=== PATIENT | male | born 1970 | race Caucasian/White ===

== ENCOUNTER 2024-02-14 15:03 | Outpatient (AMB) | payer BC, SELFPAY ==
--- NOTE | 2024-02-14 15:08 | MHC.OFFVIS ---
Vital Signs 02/14/24 15:09 Height 6 ft 2 in Weight 229 lb 4.492 oz BMI 29.4 BP 140/70 H Blood Pressure Location Rt brachial Position Sitting Pulse 77 Pulse Source Pulse Oximeter Pulse Oximetry (%) 94 Oxygen Delivery Method Room Air Intake Visit Reasons: /LM Intake Note: New pt presents today for consult. C/o pain in multiple joints. States he has RA; saw rheum many years ago at [facility]. 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 He states that in he was diagnosed with ankylosing spondylitis in his spine and rheumatoid arthritis in his hands by Dr. Beasley. Stated that he was on sulfasalazine regularly until Dr. Beasley retired around 2016. Has not been evaluated by a brand development manager since then. Stated that he did not believe that the sulfasalazine was helping however he stated that over the last few years has been having more progressive fitness, deformities of his hands, fingers, toes. States that he gets back pain but his back pain is not his most severe joint. Generalized morning stiffness, he wakes up around 04:00 to be ready for work at 07:00. Denies any history suggestive of uveitis. Has had colonoscopy in the past which showed benign polyps. He takes Aleve about once a month as needed for joint pain. Denies any history of psoriasis. States that his father also has a ankylosing spondylitis. In 1998 he had left lower extremity DVT in the context of left knee arthroscopy. He was started on Coumadin. He believes about a year after he developed another lower extremity DVT. He is currently on Xarelto regularly. He wears compression stockings regularly for his left lower extremity. [facility] Medical History Spondyloarthropathy Chronic back pain History of cardioversion Recurrent deep vein thrombosis Essential hypertension History of atrial fibrillation Surgical History H/O arthroscopy of knee Family History Mother Peripheral vascular disease Spondyloarthropathy Father COPD (chronic obstructive pulmonary disease) DVT (deep venous thrombosis) Social History Household Members: Significant Other Alcohol intake: current Alcohol intake frequency: a few times a week Patient Tobacco Use Status: Current everyday Tobacco user Tobacco use type: Cigarette Cigarette Packs Per Day: 1 Review of Systems Const Reports fatigue and Denies fever(s) ENT Reports neck pain Musc Reports back pain, Reports deformity, Reports arthralgias, Reports joint swelling, Reports neck pain and Reports stiffness Endo Reports fatigue Physical Exam Vital Signs: Last Vital Signs Pulse 77 02/14/24 15:09 BP 140/70 H 02/14/24 15:09 Pulse Ox 94 02/14/24 15:09 Oxygen Delivery Method Room Air 02/14/24 15:09 BMI result Body Mass Index 29.4 Const General: cooperative, healthy appearing and comfortable Nutritional Appearance: overweight Orientation/consciousness: patient oriented x3 Limitations: no limitations HEENT Head: Yes normocephalic and Yes atraumatic Mouth: moist mucous membranes Resp Effort & Inspection: normal respiratory effort and able to speak in complete sentences Auscultation: clear to auscultation bilaterally Cardio Rate: regular rate Rhythm: regular rhythm Neuro General: patient oriented x3 Extrem Other: Significant deformities of both hands. Right wrist prominent ulnar styloid No wrist swelling but some pain with full flexion Significant enlargement of PIP is and DIP is Mild boggy swelling of some of the PIP is and DIP is especially left thumb interphalangeal joint Significant destruction of right 4th DIP Left wrist pain with full flexion Minimally tender PIPs Significant deformities enlargement of PIP is and DIP is with some boggy swelling Positive empty can test bilaterally Have infraspinatus test, lift-off test, Speed's test bilaterally Normal range of motion of neck Nicolasa test 10-12.8 cm Negative straight leg raise test bilaterally Negative Fabere test bilaterally Significant deformities of toes significant enlargement of 1st MTPs bilaterally Normal nailfold capillaroscopy Assessment & Plan Assessment & Plan (1) Spondyloarthropathy: Comment: +HLA b27 SSZ approx [id number] Code(s): M47.819 - Spondylosis without myelopathy or radiculopathy, site unspecified Category: Medical Plan: This is a 54-year-old male with HLA B27 positive spondyloarthropathy who presents as a new patient for me. Was diagnosed with HLA B27 positive spondyloarthropathy approximately 2006 and was on sulfasalazine regularly until about 2017 when his brand development manager retired. Per patient it was not helping much but he feels that his deformities are getting progressive. On exam he has significant deformities of his hands and feet. Some limitation of movement of his spine. He also states that he was diagnosed with rheumatoid arthritis. Will order comprehensive serology to screen for better understand his underlying autoimmune rheumatic disease. Check x-rays of involved joints. Patient was on Xarelto regularly for his history of recurrent DVTs. Combination of NSAIDs and Xarelto is not a good idea, there is increased risk of bleeding. Can take prednisone 10 mg once daily as needed for joint pain Follow-up in about 6 or 7 weeks Plan I spent 49 minutes reviewing patient's chart, evaluating patient, ordering diagnostic workup, counseling patient and documenting in the chart Orders: Orders C Reactive Protein Today M06.9 - Rheumatoid arthritis, unspecified Erythrocyte Sedimentation Rate Today M06.9 - Rheumatoid arthritis, unspecified Immunofixation Pnl, Serum Today M06.9 - Rheumatoid arthritis, unspecified Cyclic Citrullinated Peptide Today M06.9 - Rheumatoid arthritis, unspecified HLA B27 Today M45.9 - Ankylosing spondylitis of unspecified sites in spine XR lumbar spine 4V min Today M47.819 - Spondylosis without myelopathy or radiculopathy, site unspecified XR hand wrist LT Today M47.819 - Spondylosis without myelopathy or radiculopathy, site unspecified XR sacroiliac joint min 3V Today M47.819 - Spondylosis without myelopathy or radiculopathy, site unspecified XR foot LT min 3V Today M45.9 - Ankylosing spondylitis of unspecified sites in spine XR foot RT min 3V Today M45.9 - Ankylosing spondylitis of unspecified sites in spine XR shoulder LT min 2V Today M45.9 - Ankylosing spondylitis of unspecified sites in spine DEON Reflex Titer and Pattern Today M32.9 - Systemic lupus erythematosus, unspecified UA w Microscopic Today M32.9 - Systemic lupus erythematosus, unspecified Complete Blood Count Auto Diff Today M06.9 - Rheumatoid arthritis, unspecified Comprehensive Met. Panel Today M06.9 - Rheumatoid arthritis, unspecified Hepatitis A,B,C Profile Today Z11.59 - Encounter for screening for other viral diseases Protein Electrophoresis, Serum Today M06.9 - Rheumatoid arthritis, unspecified T Spot TB Today Z11.7 - Encounter for testing for latent tuberculosis infection Rheumatoid Factor Today M06.9 - Rheumatoid arthritis, unspecified XR hand wrist RT Today M47.819 - Spondylosis without myelopathy or radiculopathy, site unspecified XR shoulder RT min 2V Today M45.9 - Ankylosing spondylitis of unspecified sites in spine Anti Extractable Nuclear Ag Today M32.9 - Systemic lupus erythematosus, unspecified Anti DNA DS Antibody Today M32.9 - Systemic lupus erythematosus, unspecified Complement C3 Today M32.9 - Systemic lupus erythematosus, unspecified Complement C4 Today M32.9 - Systemic lupus erythematosus, unspecified DNA Double Stranded-Crithidia Today M32.9 - Systemic lupus erythematosus, unspecified Protein Creatinine Ratio, Ur Today M32.9 - Systemic lupus erythematosus, unspecified Sjogren's Antibodies Today M32.9 - Systemic lupus erythematosus, unspecified Beta-2 Glycoprotein Antibody Today I82.409 - Acute embolism and thrombosis of unspecified deep veins of unspecified lower extremity Cardiolipin Antibodies Today I82.409 - Acute embolism and thrombosis of unspecified deep veins of unspecified lower extremity Lupus Anticoagulant Panel Today I82.409 - Acute embolism and thrombosis of unspecified deep veins of unspecified lower extremity Medications: New prednisone 10 mg PO DAILY PRN 30 tabs 0RF pain (scale score 7-10) Coding Level of Care Code New Pt Level 4 (74177) Diagnoses Spondyloarthropathy M47.819
[2024-02-14 15:09] VITALS: BP 140/70; PULSE 77; O2SAT 94; BMI 29.4
== END 2024-02-14 15:51 | disposition home or self-care (01) ==
PROVIDERS: PCP Physician Assistant; Visit Provider Student in an Organized Health Care Education/Training Program
DX: M47.819 Spondylosis without myelopathy or radiculopathy, site unspecified (principal)
CPT/HCPCS: 99204

== ENCOUNTER 2024-02-14 15:03 | Outpatient (REF) | payer BC, SELFPAY ==
--- NOTE | ~2024-02-14 | XR_ITS ---
EXAMINATION: XR BILATERAL SHOULDERS XR BILATERAL SACROILIAC JOINTS XR LUMBAR SPINE XR BILATERAL HAND/WRISTS XR BILATERAL FEET CLINICAL INFORMATION: Ankylosing spondylitis, patient states he is getting a rheumatology workup from his doctor. COMPARISON: None available. TECHNIQUE: 4 views of each shoulder. 4 views of each hand. 3 views of each foot. 3 views of the bilateral sacroiliac joints. 5 views of the lumbar spine. FINDINGS: LEFT FOOT: Advanced degenerative changes in the IP joint of the great toe with hypertrophic change, joint space narrowing and lateral subluxation of the distal tuft of the great toe. Moderate degenerative changes first metatarsophalangeal joint. Flexion deformities in the toes with lateral subluxations at the second, third, and fourth MTP joints. Marked dislocation at the fifth MTP joint as well as at the fifth PIP joint. Bones are demineralized. Advanced degenerative changes with hypertrophic change in the midfoot and tarsometatarsal joints. Moderate dorsal and plantar calcaneal spurs. RIGHT FOOT: Advanced degenerative changes in the IP joint of the great toe with hypertrophic change, joint space narrowing and lateral subluxation of the distal tuft of the great toe. Degenerative changes in the IP joints of the toes with subluxations particularly notable at the second PIP and DIP joints. Moderate degenerative changes first metatarsophalangeal joint. The bones are diffusely demineralized. Advanced degenerative changes at the right fifth MTP joints. Moderate degenerative changes with hypertrophic change in the midfoot and tarsometatarsal joints. Small dorsal and plantar calcaneal spurs. BILATERAL SACROILIAC JOINTS: Advanced degenerative changes in the bilateral sacroiliac joints with joint space narrowing and hypertrophic change. Degenerative changes on very limited images of the bilateral hips. LUMBAR SPINE: Levoscoliosis of the lumbar spine. Bones are diffusely demineralized. Advanced facet arthritis in the mid to lower lumbar spine. Multilevel lumbar spondylosis with multilevel loss of disc space height. LEFT HAND: Narrowing and degenerative changes in the distal radial ulnar and radiocarpal joints. Moderate degenerative changes in the first carpometacarpal joint with joint space narrowing and hypertrophic change. Abundant hypertrophic change particularly notable in the region of the distal ulna. Degenerative changes with joint space narrowing and hypertrophic change particularly notable in the third DIP and first IP joints. Soft tissue swelling at the digits. RIGHT HAND: Mild narrowing and degenerative change in the distal radial ulnar and radiocarpal joints. Moderate hypertrophic change particularly in the region of the distal right ulna. Advanced degenerative changes with joint space narrowing and hypertrophic change most notable in the IP joint of the thumb as well as in the third, fourth and fifth DIP joints. XR/XR shoulder LT min 2V IMPRESSION: 1. Advanced degenerative changes in the bilateral sacroiliac joints. 2. Advanced degenerative changes in the bilateral feet with subluxations and dislocations as described. 3. Advanced facet arthritis in the wax-ch-wbgfu lumbar spine. 4. Multilevel lumbar spondylosis with multilevel loss of disc space height. 5. Advanced degenerative changes in the bilateral hands. Recommend follow-up imaging in 10-14 days if fracture is suspected. MRI could be considered for further evaluation based on the clinical assessment.
--- NOTE | ~2024-02-14 | XR_ITS ---
EXAMINATION: XR BILATERAL SHOULDERS XR BILATERAL SACROILIAC JOINTS XR LUMBAR SPINE XR BILATERAL HAND/WRISTS XR BILATERAL FEET CLINICAL INFORMATION: Ankylosing spondylitis, patient states he is getting a rheumatology workup from his doctor. COMPARISON: None available. TECHNIQUE: 4 views of each shoulder. 4 views of each hand. 3 views of each foot. 3 views of the bilateral sacroiliac joints. 5 views of the lumbar spine. FINDINGS: LEFT FOOT: Advanced degenerative changes in the IP joint of the great toe with hypertrophic change, joint space narrowing and lateral subluxation of the distal tuft of the great toe. Moderate degenerative changes first metatarsophalangeal joint. Flexion deformities in the toes with lateral subluxations at the second, third, and fourth MTP joints. Marked dislocation at the fifth MTP joint as well as at the fifth PIP joint. Bones are demineralized. Advanced degenerative changes with hypertrophic change in the midfoot and tarsometatarsal joints. Moderate dorsal and plantar calcaneal spurs. RIGHT FOOT: Advanced degenerative changes in the IP joint of the great toe with hypertrophic change, joint space narrowing and lateral subluxation of the distal tuft of the great toe. Degenerative changes in the IP joints of the toes with subluxations particularly notable at the second PIP and DIP joints. Moderate degenerative changes first metatarsophalangeal joint. The bones are diffusely demineralized. Advanced degenerative changes at the right fifth MTP joints. Moderate degenerative changes with hypertrophic change in the midfoot and tarsometatarsal joints. Small dorsal and plantar calcaneal spurs. BILATERAL SACROILIAC JOINTS: Advanced degenerative changes in the bilateral sacroiliac joints with joint space narrowing and hypertrophic change. Degenerative changes on very limited images of the bilateral hips. LUMBAR SPINE: Levoscoliosis of the lumbar spine. Bones are diffusely demineralized. Advanced facet arthritis in the mid to lower lumbar spine. Multilevel lumbar spondylosis with multilevel loss of disc space height. LEFT HAND: Narrowing and degenerative changes in the distal radial ulnar and radiocarpal joints. Moderate degenerative changes in the first carpometacarpal joint with joint space narrowing and hypertrophic change. Abundant hypertrophic change particularly notable in the region of the distal ulna. Degenerative changes with joint space narrowing and hypertrophic change particularly notable in the third DIP and first IP joints. Soft tissue swelling at the digits. RIGHT HAND: Mild narrowing and degenerative change in the distal radial ulnar and radiocarpal joints. Moderate hypertrophic change particularly in the region of the distal right ulna. Advanced degenerative changes with joint space narrowing and hypertrophic change most notable in the IP joint of the thumb as well as in the third, fourth and fifth DIP joints. XR/XR hand wrist LT IMPRESSION: 1. Advanced degenerative changes in the bilateral sacroiliac joints. 2. Advanced degenerative changes in the bilateral feet with subluxations and dislocations as described. 3. Advanced facet arthritis in the grg-ji-vqnnp lumbar spine. 4. Multilevel lumbar spondylosis with multilevel loss of disc space height. 5. Advanced degenerative changes in the bilateral hands. Recommend follow-up imaging in 10-14 days if fracture is suspected. MRI could be considered for further evaluation based on the clinical assessment.
--- NOTE | ~2024-02-14 | XR_ITS ---
EXAMINATION: XR BILATERAL SHOULDERS XR BILATERAL SACROILIAC JOINTS XR LUMBAR SPINE XR BILATERAL HAND/WRISTS XR BILATERAL FEET CLINICAL INFORMATION: Ankylosing spondylitis, patient states he is getting a rheumatology workup from his doctor. COMPARISON: None available. TECHNIQUE: 4 views of each shoulder. 4 views of each hand. 3 views of each foot. 3 views of the bilateral sacroiliac joints. 5 views of the lumbar spine. FINDINGS: LEFT FOOT: Advanced degenerative changes in the IP joint of the great toe with hypertrophic change, joint space narrowing and lateral subluxation of the distal tuft of the great toe. Moderate degenerative changes first metatarsophalangeal joint. Flexion deformities in the toes with lateral subluxations at the second, third, and fourth MTP joints. Marked dislocation at the fifth MTP joint as well as at the fifth PIP joint. Bones are demineralized. Advanced degenerative changes with hypertrophic change in the midfoot and tarsometatarsal joints. Moderate dorsal and plantar calcaneal spurs. RIGHT FOOT: Advanced degenerative changes in the IP joint of the great toe with hypertrophic change, joint space narrowing and lateral subluxation of the distal tuft of the great toe. Degenerative changes in the IP joints of the toes with subluxations particularly notable at the second PIP and DIP joints. Moderate degenerative changes first metatarsophalangeal joint. The bones are diffusely demineralized. Advanced degenerative changes at the right fifth MTP joints. Moderate degenerative changes with hypertrophic change in the midfoot and tarsometatarsal joints. Small dorsal and plantar calcaneal spurs. BILATERAL SACROILIAC JOINTS: Advanced degenerative changes in the bilateral sacroiliac joints with joint space narrowing and hypertrophic change. Degenerative changes on very limited images of the bilateral hips. LUMBAR SPINE: Levoscoliosis of the lumbar spine. Bones are diffusely demineralized. Advanced facet arthritis in the mid to lower lumbar spine. Multilevel lumbar spondylosis with multilevel loss of disc space height. LEFT HAND: Narrowing and degenerative changes in the distal radial ulnar and radiocarpal joints. Moderate degenerative changes in the first carpometacarpal joint with joint space narrowing and hypertrophic change. Abundant hypertrophic change particularly notable in the region of the distal ulna. Degenerative changes with joint space narrowing and hypertrophic change particularly notable in the third DIP and first IP joints. Soft tissue swelling at the digits. RIGHT HAND: Mild narrowing and degenerative change in the distal radial ulnar and radiocarpal joints. Moderate hypertrophic change particularly in the region of the distal right ulna. Advanced degenerative changes with joint space narrowing and hypertrophic change most notable in the IP joint of the thumb as well as in the third, fourth and fifth DIP joints. XR/XR sacroiliac joint min 3V IMPRESSION: 1. Advanced degenerative changes in the bilateral sacroiliac joints. 2. Advanced degenerative changes in the bilateral feet with subluxations and dislocations as described. 3. Advanced facet arthritis in the [id number]-hz-ceoyv lumbar spine. 4. Multilevel lumbar spondylosis with multilevel loss of disc space height. 5. Advanced degenerative changes in the bilateral hands. Recommend follow-up imaging in 10-14 days if fracture is suspected. MRI could be considered for further evaluation based on the clinical assessment.
--- NOTE | ~2024-02-14 | XR_ITS ---
EXAMINATION: XR BILATERAL SHOULDERS XR BILATERAL SACROILIAC JOINTS XR LUMBAR SPINE XR BILATERAL HAND/WRISTS XR BILATERAL FEET CLINICAL INFORMATION: Ankylosing spondylitis, patient states he is getting a rheumatology workup from his doctor. COMPARISON: None available. TECHNIQUE: 4 views of each shoulder. 4 views of each hand. 3 views of each foot. 3 views of the bilateral sacroiliac joints. 5 views of the lumbar spine. FINDINGS: LEFT FOOT: Advanced degenerative changes in the IP joint of the great toe with hypertrophic change, joint space narrowing and lateral subluxation of the distal tuft of the great toe. Moderate degenerative changes first metatarsophalangeal joint. Flexion deformities in the toes with lateral subluxations at the second, third, and fourth MTP joints. Marked dislocation at the fifth MTP joint as well as at the fifth PIP joint. Bones are demineralized. Advanced degenerative changes with hypertrophic change in the midfoot and tarsometatarsal joints. Moderate dorsal and plantar calcaneal spurs. RIGHT FOOT: Advanced degenerative changes in the IP joint of the great toe with hypertrophic change, joint space narrowing and lateral subluxation of the distal tuft of the great toe. Degenerative changes in the IP joints of the toes with subluxations particularly notable at the second PIP and DIP joints. Moderate degenerative changes first metatarsophalangeal joint. The bones are diffusely demineralized. Advanced degenerative changes at the right fifth MTP joints. Moderate degenerative changes with hypertrophic change in the midfoot and tarsometatarsal joints. Small dorsal and plantar calcaneal spurs. BILATERAL SACROILIAC JOINTS: Advanced degenerative changes in the bilateral sacroiliac joints with joint space narrowing and hypertrophic change. Degenerative changes on very limited images of the bilateral hips. LUMBAR SPINE: Levoscoliosis of the lumbar spine. Bones are diffusely demineralized. Advanced facet arthritis in the mid to lower lumbar spine. Multilevel lumbar spondylosis with multilevel loss of disc space height. LEFT HAND: Narrowing and degenerative changes in the distal radial ulnar and radiocarpal joints. Moderate degenerative changes in the first carpometacarpal joint with joint space narrowing and hypertrophic change. Abundant hypertrophic change particularly notable in the region of the distal ulna. Degenerative changes with joint space narrowing and hypertrophic change particularly notable in the third DIP and first IP joints. Soft tissue swelling at the digits. RIGHT HAND: Mild narrowing and degenerative change in the distal radial ulnar and radiocarpal joints. Moderate hypertrophic change particularly in the region of the distal right ulna. Advanced degenerative changes with joint space narrowing and hypertrophic change most notable in the IP joint of the thumb as well as in the third, fourth and fifth DIP joints. XR/XR lumbar spine 4V min IMPRESSION: 1. Advanced degenerative changes in the bilateral sacroiliac joints. 2. Advanced degenerative changes in the bilateral feet with subluxations and dislocations as described. 3. Advanced facet arthritis in the [id number]-sq-[id number] lumbar spine. 4. Multilevel lumbar spondylosis with multilevel loss of disc space height. 5. Advanced degenerative changes in the bilateral hands. Recommend follow-up imaging in 10-14 days if fracture is suspected. MRI could be considered for further evaluation based on the clinical assessment.
--- NOTE | ~2024-02-14 | XR_ITS ---
EXAMINATION: XR BILATERAL SHOULDERS XR BILATERAL SACROILIAC JOINTS XR LUMBAR SPINE XR BILATERAL HAND/WRISTS XR BILATERAL FEET CLINICAL INFORMATION: Ankylosing spondylitis, patient states he is getting a rheumatology workup from his doctor. COMPARISON: None available. TECHNIQUE: 4 views of each shoulder. 4 views of each hand. 3 views of each foot. 3 views of the bilateral sacroiliac joints. 5 views of the lumbar spine. FINDINGS: LEFT FOOT: Advanced degenerative changes in the IP joint of the great toe with hypertrophic change, joint space narrowing and lateral subluxation of the distal tuft of the great toe. Moderate degenerative changes first metatarsophalangeal joint. Flexion deformities in the toes with lateral subluxations at the second, third, and fourth MTP joints. Marked dislocation at the fifth MTP joint as well as at the fifth PIP joint. Bones are demineralized. Advanced degenerative changes with hypertrophic change in the midfoot and tarsometatarsal joints. Moderate dorsal and plantar calcaneal spurs. RIGHT FOOT: Advanced degenerative changes in the IP joint of the great toe with hypertrophic change, joint space narrowing and lateral subluxation of the distal tuft of the great toe. Degenerative changes in the IP joints of the toes with subluxations particularly notable at the second PIP and DIP joints. Moderate degenerative changes first metatarsophalangeal joint. The bones are diffusely demineralized. Advanced degenerative changes at the right fifth MTP joints. Moderate degenerative changes with hypertrophic change in the midfoot and tarsometatarsal joints. Small dorsal and plantar calcaneal spurs. BILATERAL SACROILIAC JOINTS: Advanced degenerative changes in the bilateral sacroiliac joints with joint space narrowing and hypertrophic change. Degenerative changes on very limited images of the bilateral hips. LUMBAR SPINE: Levoscoliosis of the lumbar spine. Bones are diffusely demineralized. Advanced facet arthritis in the mid to lower lumbar spine. Multilevel lumbar spondylosis with multilevel loss of disc space height. LEFT HAND: Narrowing and degenerative changes in the distal radial ulnar and radiocarpal joints. Moderate degenerative changes in the first carpometacarpal joint with joint space narrowing and hypertrophic change. Abundant hypertrophic change particularly notable in the region of the distal ulna. Degenerative changes with joint space narrowing and hypertrophic change particularly notable in the third DIP and first IP joints. Soft tissue swelling at the digits. RIGHT HAND: Mild narrowing and degenerative change in the distal radial ulnar and radiocarpal joints. Moderate hypertrophic change particularly in the region of the distal right ulna. Advanced degenerative changes with joint space narrowing and hypertrophic change most notable in the IP joint of the thumb as well as in the third, fourth and fifth DIP joints. XR/XR hand wrist RT IMPRESSION: 1. Advanced degenerative changes in the bilateral sacroiliac joints. 2. Advanced degenerative changes in the bilateral feet with subluxations and dislocations as described. 3. Advanced facet arthritis in the [id number] lumbar spine. 4. Multilevel lumbar spondylosis with multilevel loss of disc space height. 5. Advanced degenerative changes in the bilateral hands. Recommend follow-up imaging in 10-14 days if fracture is suspected. MRI could be considered for further evaluation based on the clinical assessment.
[2024-02-14 17:14] LABS: MANUAL DIFF FLAG NO
[2024-02-14 17:29] LABS: Basophils Absolute Auto 0.1 X10*3/uL (0.0-0.2); Basophils Percent Auto 0.7 % (0-2); Eosinophils Absolute Auto 0.1 X10*3/uL (0.0-0.4); Eosinophils Percent Auto 1.9 % (0-4); Hematocrit 43.7 % (42.0-52.0); Imm Gran Abs Auto 0.01 X10*3/uL (0.00-0.03); Imm Gran Pct Auto 0.1 % (0.0-0.4); Lymphocytes Absolute Auto 2.1 X10*3/uL (1.2-4.9); Lymphocytes Percent Auto 30.3 % (20-40); Mean Corpuscular HGB Conc 34.3 g/dl (31.0-36.0); Mean Corpuscular Hemoglobin 30.7 pg (27.0-33.0); Mean Corpuscular Volume 89.5 fL (80.0-98.0); Mean Platelet Volume 9.6 fL (9.4-12.4); Monocytes Absolute Auto 0.4 X10*3/uL (0.1-1.2); Monocytes Percent Auto 5.2 % (2-11); Neutrophils Absolute Auto 4.3 x10*3/uL (2.0-8.3); Neutrophils Percent Auto 61.8 % (45-73); Platelet Count 326 X10*3/uL (160-400); Red Blood Count 4.88 X10*6/uL (4.60-5.80); Red Cell Distribution Width 13.3 % (11.0-16.0); White Blood Count 6.9 X10*3/uL (4.8-10.8)
[2024-02-14 17:43] LABS: Appearance Urine Clear; Color Urine Yellow; Glucose Urine UA Negative (Negative); Leukocyte Esterase Urine Negative (Negative); Nitrite Urine Negative (Negative); PH 5.5 (5.0-9.0); Specific Gravity - Urine 1.015 (1.005-1.025); Urine Blood Negative (Negative); Urine Ketones Negative (Negative); Urine Protein Negative (Neg-Trace)
[2024-02-14 17:46] LABS: Bacteria Urine None Seen (None Seen); Hyaline Casts Urine 0-2 /LPF (0-2); RBC Urine 0-2 /HPF (0-2); Squamous Epithelial Cell Urine 0-2 /HPF (0-2); WBC Urine 0-5 /HPF (0-5)
[2024-02-14 18:01] LABS: Rheumatoid Factor < 13.0 IU/mL (<15.0)
[2024-02-14 18:01] LABS: Creatinine Urine 86.96 mg/dL; Total Protein Urine Random < 7 mg/dL (<12)
[2024-02-14 18:02] LABS: Alanine Aminotransferase 17 U/L (0-40); Albumin Level 4.5 g/dL (3.5-5.0); Alkaline Phosphatase 87 U/L (39-117); Anion Gap 15 (12-20); Aspartate Amino Transferase 17 U/L (5-37); Bilirubin Total 0.4 mg/dL (0.0-1.0); Blood Urea Nitrogen 13 mg/dL (9-16); C Reactive Protein 1.68 mg/dL (< or = 0.50); Calcium 9.7 mg/dL (8.4-10.2); Carbon Dioxide 26 mmol/L (22-29); Chloride 103 mmol/L (96-108); Estimated Glomerular Filt Rate > 60; Glucose Random 90 mg/dL (60-115); Sodium 140 mmol/L (135-145); Total Protein 7.9 g/dL (6.5-8.0)
[2024-02-14 18:28] LABS: Erythrocyte Sedimentation Rate 14 MM/HR (0-15)
[2024-02-15 08:30] LABS: Hepatitis B Core Antibody Nonreactive (Nonreactive); ~Hepatitis A Antibody IgM Nonreactive (Nonreactive)
[2024-02-15 08:50] LABS: HBS Num1 0.12 mIU/mL (0-7.99); HBc Num1 0.09 S/CO (0.00-0.79); HBsAGNum1 0.31 S/CO (0.00-0.99); Hepatitis A Antibody IgM 0.17 Index (0-0.79); Hepatitis B Surface Antigen Negative (Negative); ~HepC Num1 0.21 S/CO (0.00-0.79); ~Hepatitis B Surface Antibody NONREACTIVE (Nonreactive); ~Hepatitis C Antibody Nonreactive (Nonreactive)
[2024-02-15 12:08] LABS: Prot Elec - Albumin 4.3 g/dL (3.8-4.8); Prot Elec - Alpha1 0.4 g/dL (0.2-0.3); Prot Elec - Alpha2 0.8 g/dL (0.5-0.9); Prot Elec - Beta 1 0.5 g/dL (0.4-0.6); Prot Elec - Beta 2 0.4 g/dL (0.2-0.5); Prot Elec - Gamma 1.1 g/dL (0.8-1.7); Prot Elec - Total Protein 7.5 g/dL (6.1-8.1)
[2024-02-15 13:53] LABS: Anti DNA DS Antibody 2 IU/mL; Antibody to SS-A Antigen <1.0 NEG AI (<1.0 NEG); Antibody to SS-B Antigen <1.0 NEG AI (<1.0 NEG); Complement C3 137 mg/dL (82-185); SM/Ribonucleoprotein Ab <1.0 NEG AI (<1.0 NEG); Smith Protein <1.0 NEG AI (<1.0 NEG)
[2024-02-15 14:03] LABS: Cyclic Citrullinated Peptide <16 UNITS
[2024-02-15 20:19] LABS: Cardiolipin IgG Ab 8.1 GPL-U/mL; Cardiolipin IgM Ab <2.0 MPL-U/mL
[2024-02-17 00:23] LABS: TS Negative Control Passed; TS Panel A 0; TS Panel B 0; TS Positive Control Passed; TSpotTB Negative (Negative)
[2024-02-17 23:58] LABS: DRVVT Confirmation Negative (Negative); Hexagonal Phase Neutralization Negative (Negative); PTT (LAC) Screen 45 sec (<=40)
[2024-02-19 09:38] LABS: Anti Nuclear Antibody Pattern Nuclear, Homogeneous; Anti Nuclear Antibody Screen POSITIVE (NEGATIVE); Anti Nuclear Antibody Titer 1:40 titer
[2024-02-19 15:28] LABS: DNAds, Crithidia Antibody Negative (Negative)
[2024-02-19 16:47] LABS: IgA 168 mg/dL (47-310); IgG 1265 mg/dL (600-1640); IgM 129 mg/dL (50-300)
[2024-02-19 22:58] LABS: Beta-2 Glycoprotein IgA <2.0 U/mL (<20.0); Beta-2 Glycoprotein IgG 11.5 U/mL (<20.0); Beta-2 Glycoprotein IgM <2.0 U/mL (<20.0)
[2024-02-20 12:23] LABS: HLA B27 Positive (Negative)
== END 2024-02-14 15:04 | disposition home or self-care (01) ==
LOC: HO.XRAY 15:03
PROVIDERS: PCP Physician Assistant; Visit Provider Student in an Organized Health Care Education/Training Program
DX: M06.9 Rheumatoid arthritis, unspecified (principal); M45.9 Ankylosing spondylitis of unspecified sites in spine; M32.9 Systemic lupus erythematosus, unspecified; M47.819 Spondylosis without myelopathy or radiculopathy, site unspecified; I82.409 Acute embolism and thrombosis of unspecified deep veins of unspecified lower extremity; Z11.59 Encounter for screening for other viral diseases; Z72.89 Other problems related to lifestyle; Z11.7 Encounter for testing for latent tuberculosis infection
CPT/HCPCS: 36415; 72110; 72202; 73030; 73110; 73130; 73630; 80053; 81001; 82570; 82784; 84156; 84165; 85025; 85597; 85598; 85613; 85652; 85730; 86038; 86039; 86140; 86146; 86147; 86160; 86200; 86225; 86235; 86255; 86334; 86431; 86481; 86704; 86706; 86709; 86803; 86812; 87340

== ENCOUNTER 2024-04-02 15:47 | Outpatient (AMB) | payer BC, SELFPAY ==
--- NOTE | 2024-04-02 15:56 | MHC.OFFVIS ---
Vital Signs 04/02/24 15:57 Height 6 ft 2 in Weight 228 lb 2.855 oz BMI 29.3 BP 138/72 Blood Pressure Location Rt brachial Position Sitting Pulse 84 Pulse Source Pulse Oximeter Pulse Oximetry (%) 98 Oxygen Delivery Method Room Air Intake Visit Reasons: /RA/lm Allergies No Known Allergies Allergy (Verified 04/02/24 16:00) Medication List - Last Reconciled 04/02/24 by Maria T Kaur MD lisinopril 40 mg PO DAILY multivitamin 1 tab PO DAILY prednisone 10 mg PO DAILY PRN rivaroxaban (Xarelto) 20 mg PO DAILY HPI Comments Details: 54-year-old male with positive HLA B27 ankylosing spondylitis presents for follow-up after completion of his diagnostic workup. He has been taking the prednisone 10 mg once daily as needed for his joint pain. He took it most days. It was significantly helpful for his morning stiffness. Continues to have diffuse joint pain. Most bothersome is his right ulnar styloid swelling and stiffness. Initial history: This is a 54-year-old male who presents for evaluation of HLA B27 positive spondyloarthropathy. He states that in 2005/2006 he was diagnosed with ankylosing spondylitis in his spine and rheumatoid arthritis in his hands by Dr. Beasley. Stated that he was on sulfasalazine regularly until Dr. Beasley retired around 2017. 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 Stated that he did not believe that the sulfasalazine was helping however he stated that over the last few years has been having more progressive fitness, deformities of his hands, fingers, toes. States that he gets back pain but his back pain is not his most severe joint. Generalized morning stiffness, he wakes up around 04:00 to be ready for work at 07:00. Denies any history suggestive of uveitis. Has had colonoscopy in the past which showed benign polyps. He takes Aleve about once a month as needed for joint pain. Denies any history of psoriasis. States that his father also has a ankylosing spondylitis. In 1998 he had left lower extremity DVT in the context of left knee arthroscopy. He was started on Coumadin. He believes about a year after he developed another lower extremity DVT. He is currently on Xarelto regularly. He wears compression stockings regularly for his left lower extremity. [facility] Medical History (Updated 04/02/24 @ 16:36 by Maria T Kaur MD) Chronic back pain History of cardioversion Recurrent deep vein thrombosis Essential hypertension History of atrial fibrillation Surgical History H/O arthroscopy of knee Family History Mother Peripheral vascular disease Spondyloarthropathy Father COPD (chronic obstructive pulmonary disease) DVT (deep venous thrombosis) Social History Household Members: Significant Other Alcohol intake: current Alcohol intake frequency: a few times a week Patient Tobacco Use Status: Current everyday Tobacco user Tobacco use type: Cigarette Cigarette Packs Per Day: 1 Review of Systems Const Reports fatigue Musc Reports back pain, Reports deformity, Reports arthralgias, Reports joint swelling and Reports stiffness Endo Reports fatigue Physical Exam Vital Signs: Last Vital Signs Pulse 84 04/02/24 15:57 BP 138/72 04/02/24 15:57 Pulse Ox 98 04/02/24 15:57 Oxygen Delivery Method Room Air 04/02/24 15:57 BMI result Body Mass Index 29.3 Const General: cooperative, healthy appearing and comfortable Nutritional Appearance: overweight Orientation/consciousness: patient oriented x3 Limitations: no limitations HEENT Head: Yes normocephalic and Yes atraumatic Resp Effort & Inspection: normal respiratory effort and able to speak in complete sentences Cardio Rate: regular rate Rhythm: regular rhythm Neuro General: patient oriented x3 Extrem Other: Significant deformities of both hands. Right wrist prominent ulnar styloid, swollen and tender to palpation Significant enlargement of PIP is and DIP is Mild boggy swelling of some of the PIP is and DIP is especially left thumb interphalangeal joint Significant destruction of right 4th DIP Left wrist pain with full flexion Minimally tender PIPs Significant deformities enlargement of PIPs and DIP associated with swelling Positive empty can test bilaterally Have infraspinatus test, lift-off test, Speed's test bilaterally Normal range of motion of neck Nicolasa test 10-12.8 cm Negative straight leg raise test bilaterally Negative Fabere test bilaterally Significant deformities of toes significant enlargement of 1st MTPs bilaterally Normal nailfold capillaroscopy Results Reviewed Results Reviewed: Ordering Physician: Maria T Kaur MD Date of Service: 02/14/24 Procedure(s): XR shoulder LT min 2V Accession Number(s): [id number] cc: Maria T Kaur MD; MIGUEL OGDEN~ EXAMINATION: XR BILATERAL SHOULDERS XR BILATERAL SACROILIAC JOINTS XR LUMBAR SPINE XR BILATERAL HAND/WRISTS XR BILATERAL FEET CLINICAL INFORMATION: Ankylosing spondylitis, patient states he is getting a rheumatology workup from his doctor. COMPARISON: None available. TECHNIQUE: 4 views of each shoulder. 4 views of each hand. 3 views of each foot. 3 views of the bilateral sacroiliac joints. 5 views of the lumbar spine. FINDINGS: LEFT FOOT: Advanced degenerative changes in the IP joint of the great toe with hypertrophic change, joint space narrowing and lateral subluxation of the distal tuft of the great toe. Moderate degenerative changes first metatarsophalangeal joint. Flexion deformities in the toes with lateral subluxations at the second, third, and fourth MTP joints. Marked dislocation at the fifth MTP joint as well as at the fifth PIP joint. Bones are demineralized. Advanced degenerative changes with hypertrophic change in the midfoot and tarsometatarsal joints. Moderate dorsal and plantar calcaneal spurs. RIGHT FOOT: Advanced degenerative changes in the IP joint of the great toe with hypertrophic change, joint space narrowing and lateral subluxation of the distal tuft of the great toe. Degenerative changes in the IP joints of the toes with subluxations particularly notable at the second PIP and DIP joints. Moderate degenerative changes first metatarsophalangeal joint. The bones are diffusely demineralized. Advanced degenerative changes at the right fifth MTP joints. Moderate degenerative changes with hypertrophic change in the midfoot and tarsometatarsal joints. Small dorsal and plantar calcaneal spurs. BILATERAL SACROILIAC JOINTS: Advanced degenerative changes in the bilateral sacroiliac joints with joint space narrowing and hypertrophic change. Degenerative changes on very limited images of the bilateral hips. LUMBAR SPINE: Levoscoliosis of the lumbar spine. Bones are diffusely demineralized. Advanced facet arthritis in the mid to lower lumbar spine. Multilevel lumbar spondylosis with multilevel loss of disc space height. LEFT HAND: Narrowing and degenerative changes in the distal radial ulnar and radiocarpal joints. Moderate degenerative changes in the first carpometacarpal joint with joint space narrowing and hypertrophic change. Abundant hypertrophic change particularly notable in the region of the distal ulna. Degenerative changes with joint space narrowing and hypertrophic change particularly notable in the third DIP and first IP joints. Soft tissue swelling at the digits. RIGHT HAND: Mild narrowing and degenerative change in the distal radial ulnar and radiocarpal joints. Moderate hypertrophic change particularly in the region of the distal right ulna. Advanced degenerative changes with joint space narrowing and hypertrophic change most notable in the IP joint of the thumb as well as in the third, fourth and fifth DIP joints. XR/XR shoulder LT min 2V IMPRESSION: 1. Advanced degenerative changes in the bilateral sacroiliac joints. 2. Advanced degenerative changes in the bilateral feet with subluxations and dislocations as described. 3. Advanced facet arthritis in the [id number] lumbar spine. 4. Multilevel lumbar spondylosis with multilevel loss of disc space height. 5. Advanced degenerative changes in the bilateral hands. Assessment & Plan Assessment & Plan (1) Ankylosing spondylitis of multiple sites in spine: Comment: +HLA b27 SSZ approx [id number] Code(s): M45.0 - Ankylosing spondylitis of multiple sites in spine Category: Medical Plan: This is a 54-year-old male with HLA B27 positive ankylosing spondylitis who presents for follow-up after completion of his diagnostic workup. He Was diagnosed with HLA B27 positive spondyloarthropathy approximately 2006 and was on sulfasalazine regularly until about 2016 when his instrument lens inspector retired.? Per patient did not help him much. On exam patient has multiple swollen and tender joints, significant deformities of his hands, wrists, feet. I reviewed his spine and SI joint x-rays and has a mixture of ankylosing spondylitis as well as degenerative arthritis. Labs show elevated CRP Other do not believe sulfasalazine would help his axial disease much in addition sulfasalazine was not very helpful. We need to advance his therapy. Discussed risks and benefits of TNF inhibitors. Patient agreed to proceed. Will start prior authorization for Enbrel Prednisone 5 mg daily for 2 weeks then 1 tab once daily as needed for joint pain and stiffness Labs before next visit in 3 months (2) Long-term use of immunosuppressant medication: Code(s): Z79.60 - FPC (current) use of unspecified immunomodulators and immunosuppressants Category: Medical Plan: Side effects of Enbrel were discussed with the patient in detail including increased risk of infection, demyelinating disease, reactivation of latent TB, possible increased risk of solid and skin tumors. Patient fully aware. Advised patient to seek medical care GANESH if patient has an infection and advised patient to stop the medication until the infection is resolved. Plan I spent 22 minutes reviewing patient's chart, evaluating patient, ordering diagnostic workup, counseling patient and documenting in the chart Orders: Orders Complete Blood Count Auto Diff 3 Months M47.819 - Spondylosis without myelopathy or radiculopathy, site unspecified Comprehensive Met. Panel 3 Months M47.819 - Spondylosis without myelopathy or radiculopathy, site unspecified C Reactive Protein 3 Months M47.819 - Spondylosis without myelopathy or radiculopathy, site unspecified Erythrocyte Sedimentation Rate 3 Months M47.819 - Spondylosis without myelopathy or radiculopathy, site unspecified Medications: New prednisone orally; Take 1 tab daily for 2 weeks then take 1 tab once daily as needed for joint pain 30 tabs 0RF Discontinued prednisone Discontinued Reason: Doctor's Order 10 mg PO DAILY PRN 30 tabs 0RF pain (scale score 7-10) Coding Level of Care Code Est Pt Level 4 (59568) Diagnoses Ankylosing spondylitis of multiple sites in spine M45.0 Long-term use of immunosuppressant medication Z79.60
[2024-04-02 15:57] VITALS: BP 138/72; PULSE 84; O2SAT 98; BMI 29.3
== END 2024-04-02 16:25 | disposition home or self-care (01) ==
PROVIDERS: PCP Physician Assistant; Visit Provider Student in an Organized Health Care Education/Training Program
DX: M45.0 Ankylosing spondylitis of multiple sites in spine (principal); Z79.60 Long term (current) use of unspecified immunomodulators and immunosuppressants
CPT/HCPCS: 99214

== ENCOUNTER → 2024-04-02 15:47 | Outpatient (BNVA) | payer BC, SELFPAY | PROVIDERS: PCP Physician Assistant; Visit Provider Student in an Organized Health Care Education/Training Program ==

== ENCOUNTER 2024-09-17 15:53 | Outpatient (AMB) | payer BC, SELFPAY ==
--- NOTE | 2024-09-17 15:55 | A.OFFVIS_ITS ---
Vital Signs 09/17/24 15:59 Height 6 ft 2 in Weight 242 lb 1.081 oz BMI 31.1 BP 138/80 Blood Pressure Location Lt brachial Position Sitting Respiration 18 Pulse 88 Pulse Source Pulse Oximeter Pulse Oximetry (%) 98 Oxygen Delivery Method Room Air Intake Visit Reasons: /cm Intake Note: Patient presents for . Allergies No Known Allergies Allergy (Verified 09/17/24 15:58) Medication List - Last Reconciled 09/17/24 by Maria T Kaur MD Enbrel SureClick (etanercept) 50 mg subcut QWEEK NS lisinopril 40 mg PO DAILY multivitamin 1 tab PO DAILY prednisone 5 mg PO DAILY PRN rivaroxaban (Xarelto) 20 mg PO DAILY HPI Comments Details: 54-year-old male with positive HLA B27 ankylosing spondylitis presents for follow-up Enbrel was approved but patient was not using it regularly for a few months then over the last 2 months he has been consistent with it. Has not noticed any side effects. He states that was about the same. He is doing reasonably well. He has not taken prednisone in about 2 months. He took it yesterday night. He felt like night and day. Work has been quite physical lately. Initial history: This is a 54-year-old male who presents for evaluation of HLA B27 positive spondyloarthropathy. He states that in he was diagnosed with ankylosing spondylitis in his spine and rheumatoid arthritis in his hands by Dr. Beasley. Stated that he was on sulfasalazine regularly until Dr. Beasley retired around 2017. Has not been evaluated by a real estate assistant since then. Stated that he did not believe that the sulfasalazine was helping however he stated that over the last few years has been having more progressive fitness, deformities of his hands, fingers, toes. States that he gets back pain but his back pain is not his most severe joint. Generalized morning stiffness, he wakes up around 04:00 to be ready for work at 07:00. Denies any history suggestive of uveitis. Has had colonoscopy in the past which showed benign polyps. He takes Aleve about once a month as needed for joint pain. Denies any history of psoriasis. States that his father also has a ankylosing spondylitis. In 1998 he had left lower extremity DVT in the context of left knee arthroscopy. He was started on Coumadin. He believes about a year after he developed another lower extremity DVT. He is currently on Xarelto regularly. He wears compression stockings regularly for his left lower extremity. [facility] Medical History Chronic back pain History of cardioversion Recurrent deep vein thrombosis Essential hypertension History of atrial fibrillation Surgical History H/O arthroscopy of knee Family History Mother Peripheral vascular disease Spondyloarthropathy Father COPD (chronic obstructive pulmonary disease) DVT (deep venous thrombosis) Social History Household Members: Significant Other Alcohol intake: current Alcohol intake frequency: a few times a week Patient Tobacco Use Status: Current everyday Tobacco user Tobacco use type: Cigarette Cigarette Packs Per Day: 1 Review of Systems Musc Reports deformity, Reports arthralgias, Reports joint swelling and Reports stiffness Physical Exam Vital Signs: Last Vital Signs Pulse 88 09/17/24 15:59 Resp 18 09/17/24 15:59 BP 138/80 09/17/24 15:59 Pulse Ox 98 09/17/24 15:59 Oxygen Delivery Method Room Air 09/17/24 15:59 BMI result Body Mass Index 31.1 Const General: cooperative, healthy appearing and comfortable Nutritional Appearance: overweight Orientation/consciousness: patient oriented x3 Limitations: no limitations HEENT Head: Yes normocephalic and Yes atraumatic Resp Effort & Inspection: normal respiratory effort and able to speak in complete sentences Cardio Rate: regular rate Rhythm: regular rhythm Neuro General: patient oriented x3 Extrem Other: Significant deformities of both hands. 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 Significant destruction of right 4th DIP No wrist swelling, tenderness or pain with full flexion and extension bilaterally Significant deformities enlargement of PIPs and DIP associated with swelling Normal range of motion of shoulders Results Reviewed Results Reviewed: Ordering Physician: Maria T Kaur MD Date of Service: 02/14/24 Procedure(s): XR shoulder LT min 2V Accession Number(s): [id number] cc: Maria T Kaur MD; MIGUEL OGDEN~ EXAMINATION: XR BILATERAL SHOULDERS XR BILATERAL SACROILIAC JOINTS XR LUMBAR SPINE XR BILATERAL HAND/WRISTS XR BILATERAL FEET CLINICAL INFORMATION: Ankylosing spondylitis, patient states he is getting a rheumatology workup from his doctor. COMPARISON: None available. TECHNIQUE: 4 views of each shoulder. 4 views of each hand. 3 views of each foot. 3 views of the bilateral sacroiliac joints. 5 views of the lumbar spine. FINDINGS: LEFT FOOT: Advanced degenerative changes in the IP joint of the great toe with hypertrophic change, joint space narrowing and lateral subluxation of the distal tuft of the great toe. Moderate degenerative changes first metatarsophalangeal joint. Flexion deformities in the toes with lateral subluxations at the second, third, and fourth MTP joints. Marked dislocation at the fifth MTP joint as well as at the fifth PIP joint. Bones are demineralized. Advanced degenerative changes with hypertrophic change in the midfoot and tarsometatarsal joints. Moderate dorsal and plantar calcaneal spurs. RIGHT FOOT: Advanced degenerative changes in the IP joint of the great toe with hypertrophic change, joint space narrowing and lateral subluxation of the distal tuft of the great toe. Degenerative changes in the IP joints of the toes with subluxations particularly notable at the second PIP and DIP joints. Moderate degenerative changes first metatarsophalangeal joint. The bones are diffusely demineralized. Advanced degenerative changes at the right fifth MTP joints. Moderate degenerative changes with hypertrophic change in the midfoot and tarsometatarsal joints. Small dorsal and plantar calcaneal spurs. BILATERAL SACROILIAC JOINTS: Advanced degenerative changes in the bilateral sacroiliac joints with joint space narrowing and hypertrophic change. Degenerative changes on very limited images of the bilateral hips. LUMBAR SPINE: Levoscoliosis of the lumbar spine. Bones are diffusely demineralized. Advanced facet arthritis in the mid to lower lumbar spine. Multilevel lumbar spondylosis with multilevel loss of disc space height. LEFT HAND: Narrowing and degenerative changes in the distal radial ulnar and radiocarpal joints. Moderate degenerative changes in the first carpometacarpal joint with joint space narrowing and hypertrophic change. Abundant hypertrophic change particularly notable in the region of the distal ulna. Degenerative changes with joint space narrowing and hypertrophic change particularly notable in the third DIP and first IP joints. Soft tissue swelling at the digits. RIGHT HAND: Mild narrowing and degenerative change in the distal radial ulnar and radiocarpal joints. Moderate hypertrophic change particularly in the region of the distal right ulna. Advanced degenerative changes with joint space narrowing and hypertrophic change most notable in the IP joint of the thumb as well as in the third, fourth and fifth DIP joints. XR/XR shoulder LT min 2V IMPRESSION: 1. Advanced degenerative changes in the bilateral sacroiliac joints. 2. Advanced degenerative changes in the bilateral feet with subluxations and dislocations as described. 3. Advanced facet arthritis in the [id number] lumbar spine. 4. Multilevel lumbar spondylosis with multilevel loss of disc space height. 5. Advanced degenerative changes in the bilateral hands. Assessment & Plan Assessment & Plan (1) Ankylosing spondylitis of multiple sites in spine: Comment: +HLA b27 SSZ approx [id number] Enbrel started 04/2024 effective Code(s): M45.0 - Ankylosing spondylitis of multiple sites in spine Category: Medical Plan: This is a 54-year-old male with HLA B27 positive ankylosing spondylitis who presents for follow-up. He has been taking Enbrel regularly now for 2 months. Well-tolerated. Doing much better on exam. Inflammatory markers have normalized. Have used prednisone yesterday. First time in 2 months. He does get relief from prednisone. I think prednisone helps with his degenerative and mechanical symptoms rather than the inflammatory arthritis. Continue with Enbrel 50 mg subcutaneously weekly Can use prednisone 5 mg once daily once or twice a week Labs before next visit in 6 months (2) Long-term use of immunosuppressant medication: Code(s): Z79.60 - buttermaker (current) use of unspecified immunomodulators and immunosuppressants Category: Medical Plan: Side effects of Enbrel were discussed with the patient in detail including increased risk of infection, demyelinating disease, reactivation of latent TB, possible increased risk of solid and skin tumors. Patient fully aware. Advised patient to seek medical care GANESH if patient has an infection and advised patient to stop the medication until the infection is resolved. Plan I spent 22 minutes reviewing patient's chart, evaluating patient, ordering diagnostic workup, counseling patient and documenting in the chart Orders: Orders Comprehensive Met. Panel 6 Months M45.0 - Ankylosing spondylitis of multiple sites in spine Complete Blood Count Auto Diff 6 Months M45.0 - Ankylosing spondylitis of multiple sites in spine C Reactive Protein 6 Months M45.0 - Ankylosing spondylitis of multiple sites in spine Erythrocyte Sedimentation Rate 6 Months M45.0 - Ankylosing spondylitis of multiple sites in spine Medications: Refilled prednisone 5 mg PO DAILY PRN 15 tabs 0RF pain Coding Level of Care Code Est Pt Level 4 (36786) Complex EM visit Add On G2211 Diagnoses Ankylosing spondylitis of multiple sites in spine M45.0 Long-term use of immunosuppressant medication Z79.60
[2024-09-17 15:59] VITALS: BP 138/80; PULSE 88; RESP 18; O2SAT 98; BMI 31.1
== END 2024-09-17 16:16 | disposition home or self-care (01) ==
PROVIDERS: PCP Physician Assistant; Visit Provider Student in an Organized Health Care Education/Training Program
DX: M45.0 Ankylosing spondylitis of multiple sites in spine (principal); Z79.60 Long term (current) use of unspecified immunomodulators and immunosuppressants
CPT/HCPCS: 99214

== ENCOUNTER → 2024-09-17 15:53 | Outpatient (BNVA) | payer BC, SELFPAY | PROVIDERS: PCP Physician Assistant; Visit Provider Student in an Organized Health Care Education/Training Program ==

== ENCOUNTER 2025-07-16 08:01 | Outpatient (AMB) | payer BC, SELFPAY ==
--- NOTE | 2025-07-16 08:28 | A.OFFVIS_ITS ---
Vital Signs 07/16/25 08:33 Height 6 ft 2 in Weight 233 lb 11.04 oz BMI 30.0 BP 134/80 Blood Pressure Location Lt brachial Position Sitting Pulse 71 Pulse Source Pulse Oximeter Pulse Oximetry (%) 97 Oxygen Delivery Method Room Air Intake Visit Reasons: Intake Note: Patient presents for follow up. Allergies No Known Allergies Allergy (Verified 07/16/25 08:32) Medication List - Last Reconciled 07/16/25 by Triny Meyers MD Enbrel SureClick (etanercept) 50 mg subcut QWEEK NS lisinopril 40 mg PO DAILY multivitamin 1 tab PO DAILY prednisone 5 mg PO DAILY PRN rivaroxaban (Xarelto) 20 mg PO DAILY HPI Comments Details: Patient is a 55-year-old male with hypertension, recurrent DVTs on Xarelto and HLA B27 positive ankylosing spondylitis here today for follow up Interval History: Patient last seen 09/17/[address] Kaur - On Enbrel 50 mg SC every week, prednisone 5mg prn - Enbrel was approved but patient was not using it regularly for a few months then over the last 2 months he has been consistent with it. Has not noticed any side effects. He states that was about the same. He is doing reasonably well. He has not taken prednisone in about 2 months. He took it yesterday night. He felt like night and day. Work has been quite physical lately. - Today - On Enbrel 50mg SC weekly and prednisone mg prn - Has good days and bad days - Overall feeling better after starting Enbrel - Still takes prednisone intermittently Rheumatologic History: HLA B27 positive Ank Spon Dx SSZ [id number] - not effective Enbrel 04/2024 effective Initial history: This is a 54-year-old male who presents for evaluation of HLA B27 positive spondyloarthropathy. He states that in he was diagnosed with ankylosing spondylitis in his spine and rheumatoid arthritis in his hands by Dr. Beasley. Stated that he was on sulfasalazine regularly until Dr. Beasley retired around 2016. Has not been evaluated by a project management analyst since then. Stated that he did not believe that the sulfasalazine was helping however he stated that over the last few years has been having more progressive fitness, deformities of his hands, fingers, toes. States that he gets back pain but his back pain is not his most severe joint. Generalized morning stiffness, he wakes up around 04:00 to be ready for work at 07:00. Denies any history suggestive of uveitis. Has had colonoscopy in the past which showed benign polyps. He takes Aleve about once a month as needed for joint pain. Denies any history of psoriasis. States that his father also has a ankylosing spondylitis. In 1998 he had left lower extremity DVT in the context of left knee arthroscopy. He was started on Coumadin. He believes about a year after he developed another lower extremity DVT. He is currently on Xarelto regularly. He wears compression stockings regularly for his left lower extremity. Current Rheumatology Medication(s): Enbrel 50mg SC weekly Prednisone 5mg daily prn PFSH Medical History Chronic back pain History of cardioversion Recurrent deep vein thrombosis Essential hypertension History of atrial fibrillation Surgical History H/O arthroscopy of knee Family History Mother Peripheral vascular disease Spondyloarthropathy Father COPD (chronic obstructive pulmonary disease) DVT (deep venous thrombosis) Social History Household Members: Significant Other Alcohol intake: current Alcohol intake frequency: a few times a week Patient Tobacco Use Status: Current everyday Tobacco user Tobacco use type: Cigarette Cigarette Packs Per Day: 1 Review of Systems Const Details: Review of Systems Constitutional: Denies fever, chills, weight loss ENT: Denies vision changes, eye pain or eye redness, dental caries, dry mouth GI: Denies nausea, vomiting, diarrhea, abdominal pain, change in BM Pulm: Denies SOB, DURAN, hemoptysis, wheezing Cards: Denies chest pain, palpitations Skin: Denies Raynaud's, rash, nail changes, photosensitivity, CODE ENFORCEMENT OFFICER: Denies headaches, weakness, paresthesias, recurrent falls MSK: as per HPI All other systems reviewed and are unremarkable except noted above Physical Exam Exam Exam: Vital signs reviewed Physical Examination CONSTITUITIONAL Patient alert and cooperative. Well appearing and in no apparent painful distress MSK Hands * Right Hand: Able to make a fist. No swelling or tenderness to palpation of the MCPs, PIPs or DIPs. Prominent Herbedens and Bouchards nodes noted with flexion deformities of the 5th DIP and 4th PIP * Left Hand: Able to make a fist. No swelling or tenderness to palpation of the MCPs, PIPs or DIPs. Prominent Herbedens and Bouchards nodes noted with flexion deformities of the 2nd DIP and 4th DIP Wrists * Right Wrist: Full ROM to flexion and extension. No swelling or TTP. Prominent ulnar styloid process * Left Wrist: Full ROM to flexion and extension. No swelling or TTP. Prominent ulnar styloid process Elbows * Right Elbow: Full ROM. No swelling or TTP. No TTP of the medial epicondyle. No TTP of the lateral epicondyle * Left Elbow: Full ROM. No swelling or TTP. No TTP of the medial epicondyle. No TTP of the lateral epicondyle Shoulders * Right shoulder: Full ROM. No swelling noted. No TTP of the AC joint. No TTP of the subacromial bursa. No TTP of the posterior shoulder * Left shoulder: Full ROM. No swelling noted. No TTP of the AC joint. No TTP of the subacromial bursa. No TTP of the posterior shoulder Knees * Right knee: Full ROM. No swelling noted. No TTP of the knee joint line. No TTP of pes anserine bursa * Left knee: Full ROM. No swelling noted. No TTP of the knee joint line. No TTP of pes anserine bursa. * Crepitations felt bilaterally Ankles * Right ankle: Good ankle dorsiflexion and plantar flexion. No swelling. No TTP of the ankle joint * Left ankle: Good ankle dorsiflexion and plantar flexion. No swelling. No TTP of the ankle joint Feet * Right foot: Negative squeeze test * Left foot: Negative squeeze test Tender points? * No tenderness to palpation of the bilateral trapezius, supraspinatus, anterior costochondral junctions, bilateral suboccipital muscle insertions SKIN No rashes Vital Signs: Last Vital Signs Pulse 71 07/16/25 08:33 BP 134/80 07/16/25 08:33 Pulse Ox 97 07/16/25 08:33 Oxygen Delivery Method Room Air 07/16/25 08:33 BMI result Body Mass Index 30.0 Results Reviewed Results Reviewed: 07/08/25 VMG WBC 6.20 Hb 15.1 Plt 200 BUN 12 Cr 0.12 eGFR >60 AST 23 ALT 35 ESR 5 CRP 2.9 XR SI Joints 02/2024 BILATERAL SACROILIAC JOINTS: Advanced degenerative changes in the bilateral sacroiliac joints with joint space narrowing and hypertrophic change. Degenerative changes on very limited images of the bilateral hips. IMPRESSION: 1. Advanced degenerative changes in the bilateral sacroiliac joints. XR L Spine 02/2024 LUMBAR SPINE: Levoscoliosis of the lumbar spine. Bones are diffusely demineralized. Advanced facet arthritis in the mid to lower lumbar spine. Multilevel lumbar spondylosis with multilevel loss of disc space height. IMPRESSION: 1. Advanced facet arthritis in the [id number] lumbar spine. 2. Multilevel lumbar spondylosis with multilevel loss of disc space height. XR Bilateral Hands 02/2024 LEFT HAND: Narrowing and degenerative changes in the distal radial ulnar and radiocarpal joints. Moderate degenerative changes in the first carpometacarpal joint with joint space narrowing and hypertrophic change. Abundant hypertrophic change particularly notable in the region of the distal ulna. Degenerative changes with joint space narrowing and hypertrophic change particularly notable in the third DIP and first IP joints. Soft tissue swelling at the digits. RIGHT HAND: Mild narrowing and degenerative change in the distal radial ulnar and radiocarpal joints. Moderate hypertrophic change particularly in the region of the distal right ulna. Advanced degenerative changes with joint space narrowing and hypertrophic change most notable in the IP joint of the thumb as well as in the third, fourth and fifth DIP joints. IMPRESSION: 1. Advanced degenerative changes in the bilateral hands. Assessment & Plan Assessment & Plan (1) Ankylosing spondylitis of multiple sites in spine: Comment: +HLA b27 SSZ approx [id number] Enbrel started 04/2024 effective Code(s): M45.0 - Ankylosing spondylitis of multiple sites in spine Category: Medical Plan: #Ankylosing Spondylitis Patient is a 55-year-old male with HLA B27 positive ankylosing spondylitis here today for follow up. Doing well on Enbrel. Plan - Enbrel 50mg SC every week - Prednisone 5mg PO prn - RTC 6 months - Labs before visit: CBC, CMP, ESR, CRP, Hepatitis panel and T spot (2) Polyarticular osteoarthritis: Code(s): M15.9 - Polyosteoarthritis, unspecified Plan: #Polyarticular OA Patient with significant polyarticular osteoarthritis however under control at present. Encouraged continued movement (3) Encounter for monitoring of etanercept therapy: Code(s): Z51.81 - Encounter for therapeutic drug level monitoring; Z79.620 - skilled nursing (current) use of immunosuppressive biologic Plan: #Long-term Use of TNF Inhibitors: Enbrel Discussed with the patient the benefits and risks of TNF inhibitors for the management of the rheumatic condition Benefits include reduce pain, maintenance of remission and reduction of flares as well as progression of the disease Risks include injection sites/infusion reactions, serious infections (such as bacterial infections, opportunistic infections), malignancy, delaminating syndromes, autoimmune phenomena, CHF exacerbations, palmar plantar psoriasis and cytopenias Recommended rotating injection sites, and holding medication during and for up to 1 week after resolution of a febrile illness or open skin wound (4) skilled nursing (current) use of systemic steroids: Code(s): Z79.52 - marine oil terminal superintendent (current) use of systemic steroids Plan: #Long-term Use of Steroids Discussed with patient the risks and benefits of steroid for managing the rheumatic condition Benefits include: - Reduced pain, improved mobility, increased participation in activities, and decreased progression of disease Risks include: - GI upset, potential ultrasound worsening or formation (especially in patients > 65 years old), elevated blood pressure/worsening hypertension, elevated blood sugar/worsening diabetes control, worsening of bone density, elevated lipids/worsening triglycerides, cataract formation, weight gain Recommended using proton pump inhibitors (PPIs) for the duration of steroid use to reduce the risk of gastric ulcers and vitamin-D daily to reduce the risk of osteoporosis Labs checked: A1c, T spot, hepatitis-B and C serologies Pneumocystis jiroveci prophylaxis: Patient with risk factors including steroids greater than 50 mg for more than 30 days, age greater than 60 years, and lung involvement from underlying rheumatic disease requires prophylaxis and will be given so Plan I spent 35 minutes reviewing the record and labs, taking a history, examining the patient, discussing the treatment plan, ordering diagnostic work up and documenting in the medical record Orders: Orders Complete Blood Count Auto Diff 6 Months Z79.899 - Other rn long term care (current) drug therapy Erythrocyte Sedimentation Rate 6 Months Z79.899 - Other prison (current) drug therapy T Spot TB 6 Months Z79.899 - Other rn long term care (current) drug therapy Comprehensive Met. Panel 6 Months Z79.899 - Other rn long term care (current) drug therapy C Reactive Protein 6 Months Z79.899 - Other rn long term care (current) drug therapy Hepatitis B,C Profile 6 Months Z79.899 - Other rn long term care (current) drug therapy Medications: Refilled prednisone 5 mg PO DAILY PRN 15 tabs 0RF pain Enbrel SureClick (etanercept) 50 mg subcut QWEEK 4 mL 5RF NS M45.0 - Ankylosing spondylitis of multiple sites in spine Coding Level of Care Code Est Pt Level 4 (71684) Complex EM visit Add On G2211 Diagnoses Ankylosing spondylitis of multiple sites in spine M45.0 Polyarticular osteoarthritis M15.9 Encounter for monitoring of etanercept therapy Z51.81; Z79.620 skilled nursing (current) use of systemic steroids Z79.52
[2025-07-16 08:33] VITALS: BP 134/80; PULSE 71; O2SAT 97
== END 2025-07-16 08:59 | disposition home or self-care (01) ==
LOC: HO.RHES 08:02
PROVIDERS: Visit Provider Student in an Organized Health Care Education/Training Program
DX: M45.0 Ankylosing spondylitis of multiple sites in spine (principal); M15.9 Polyosteoarthritis, unspecified; Z51.81 Encounter for therapeutic drug level monitoring; Z79.620 Long term (current) use of immunosuppressive biologic; Z79.52 Long term (current) use of systemic steroids
CPT/HCPCS: 99214